=== PATIENT | male | born 1970 | race Caucasian/White ===

== ENCOUNTER 2025-08-21 09:24 | Emergency (ER) | payer OTHER, MEDICARE, MEDICAID, SELFPAY ==
[2025-08-21 09:35] VITALS: BP 153/95; PULSE 66; RESP 16; TEMP 36.1; O2SAT 96; BMI 30.9
--- NOTE | 2025-08-21 09:50 | ED.GENADULT ---
HPI - General Adult General Chief complaint: Dental/Oral Stated complaint: Toothache Time Seen by Provider: 08/21/25 09:28 History of Present Illness HPI narrative: 55-year-old gentleman with history of chronic pain works with the pain management clinic uses 10 mg of hydrocodone up to 4 times a day. Presents with right upper quadrant dental pain in his 1st molar. He can feel a sharp edge. Dentition overall is fairly good. Pain has been increasing over the last 3 days. He has tried to contact his dentist, Deondre Kent. Pain is increasing to the point where he is unable to sleep. He did take 800 mg of ibuprofen prior to arrival this morning. No fevers or facial swelling Related Data Previous Rx's ?Medication ?Instructions ?Recorded clindamycin HCl 300 mg capsule 300 mg PO BID 7 days #21 caps 08/21/25 oxycodone 10 mg tablet 10 mg PO Q6H PRN pain #16 tabs 08/21/25 Allergies Allergy/AdvReac Type Severity Reaction Status Date / Time Penicillins Allergy Anaphylaxis Verified 08/21/25 09:35 codeine AdvReac Hives Verified 08/21/25 09:35 Review of Systems Review of Systems Narrative: Pertinent positive and negative findings as per HPI Exam Initial Vital Signs Initial Vital Signs: Vital Signs Temperature 97.0 F L 08/21/25 09:35 Pulse Rate 66 08/21/25 09:35 Respiratory Rate 16 08/21/25 09:35 Blood Pressure 153/95 H 08/21/25 09:35 Pulse Oximetry 96 08/21/25 09:35 Oxygen Delivery Method Room Air 08/21/25 09:35 General: Alert, appropriate, holding ice to the right side of his face, no swelling or redness Oral exam: Has most of his teeth, periodontal disease, it does look like the posterior buccal cusp was broken off his 1st molar on the right side. No obvious swelling or drainage Respiratory: Able to speak in full sentences, no obvious respiratory distress Skin: No obvious rashes, warm and dry Neurologic: Grossly intact no obvious asymmetries or abnormalities Psych: appropriate insight and affect, cooperative Course Vital Signs Vital signs: Vital Signs - 8 hr 08/21/25 09:35 Temperature 97.0 F L Pulse Rate 66 Respiratory Rate 16 Blood Pressure 153/95 H Pulse Oximetry 96 Oxygen Delivery Method Room Air Medical Decision Making [facility] Narrative Medical decision making narrative: 55-year-old gentleman with 3 days of increasing right 1st molar dental pain. Does hurt when air touches it. He has been using his scheduled hydrocodone and it is no longer effective. We discussed additional narcotics and if it would interfere with his pain contract. He said that it would not as long as he finishes the prescribed medication 1st then restarts the hydrocodone. Will give him a prescription for 10 mg of oxycodone to use every 6 hours as needed for pain, ibuprofen 600 mg every 6 hours as needed. We discussed using some dental paste simply cover of the tooth so that air touching it isn't quite so painful. Prescriptions were electronically transmitted to [facility]. There was no indication for further imaging, advancing infection or reason for hospital admission today questions are answered he is safely discharge Discharge Plan Departure Patient Disposition: Home Clinical Impression: Toothache Instructions: DI for Dental Pain Activity Restrictions/Additional Instructions: Thank you for coming in today With the 1st molar on the right side hurting with a even air touching it I suspect that you did break off back portion of the tooth and likely do have part of the root exposed which is why it hurts so much. Definitive treatment for this is going to be seeing your [facility] dentist. I have given you a prescription for clindamycin, an antibiotic to be taken 3 times a day for the next 7 days this was electronically transmitted to [facility] in [place], they are open until 5:00 p.m. today your 1st dose was given in the emergency department Regarding your pain management contract, you have indicated that additional narcotics will not void that contract. Knowing that, I am going to suggest that you hold your 10 mg of hydrocodone and instead use 10 mg of oxycodone every 6 hours and you can add 600 mg of ibuprofen every 6 hours if needed. If you find that you are getting worse or develop any new symptoms, please feel free to return to the emergency department for further evaluation. Prescriptions: New clindamycin HCl 300 mg capsule 300 mg PO BID 7 Days Qty: 21 0RF oxycodone 10 mg tablet 10 mg PO Q6H PRN (Reason: pain) Qty: 16 0RF Stand Alone Forms: Patient Portal/API
--- OUTSIDE RECORDS SUMMARY | 2025-08-21 10:09 | XMS_ITS | Encounter Summary ---
Author [facility] Address [address] [place] [address] Care Team Providers Care Front Desk Coordinator Name Role Phone Shelton Gillis MD Primary Care Provider [phone] Encounter Details Date Type Department Care Team (Late st Contact Info) Description 08/26/2014 Pre-op/Pre-procedu re Orders [facility] [id number] [place] [phone] Lonnie Velazquez, RT(R) [address] [place] [address] Social History Tobacco Use Types Packs/Day Years Used Date Smoking Tobacco: Never Assessed Sex and Gender Information Value Date Recorded Sex Assigned at Not on file Legal Sex Male 1:43 PM PDT Gender Identity Not on file Sexual Orientation Not on file documented as of this encounter Plan of Treatment Not on file documented as of this encounter Visit Diagnoses Not on filedocumented in this encounter Care Teams Front Desk Coordinator Relationship Specialty Start Date End Date Shelton Gillis MD PCP - General Emergency Medicine 08/05/13 documented as of this encounter
[2025-08-21] MEDS: CLINDAMYCIN 150 MG CAPSULE 300 MG PO (10:20)
== END 2025-08-21 10:23 | disposition home or self-care (01) ==
PROVIDERS: Emergency Provider Emergency Medicine
DX: K08.89 Other specified disorders of teeth and supporting structures (principal)
CPT/HCPCS: 99283

== ENCOUNTER 2025-08-26 11:59 | Emergency (ER) | payer OTHER, MEDICAID, SELFPAY ==
--- OUTSIDE RECORDS SUMMARY | 2025-08-26 12:02 | XMS_ITS | Encounter Summary ---
Author Organization [facility] Address [address] [place] [address] Care Team Providers Care Floor Tech Name Role Phone Shelton Gillis MD Primary Care Provider [phone] Encounter Details Date Type Department Care Team (Late st Contact Info) Description 08/26/2014 Pre-op/Pre-procedu re Orders [facility] [id number] [place] [phone] Lonnie Velazquez, RT(R) [address] [place] [address] Social History Tobacco Use Types Packs/Day Years [...] on filedocumented in this encounter Care Teams Floor Tech Relationship Specialty Start Date End Date Shelton Gillis MD PCP - General Emergency Medicine 08/05/13 documented as of this encounter
[2025-08-26 12:47] VITALS: BP 174/84; PULSE 57; RESP 17; TEMP 36.6; O2SAT 93; BMI 38.0
--- NOTE | 2025-08-26 14:44 | ED.DENTAL ---
HPI - Dental/Oral General Chief complaint: Dental/Oral Stated complaint: Dental Px Time Seen by Provider: 08/26/25 13:37 Source: patient Mode of arrival: Family Vehicle History of Present Illness HPI Narrative: Mr. Duff is a pleasant 55-year-old gentleman with a past medical history of chronic shoulder pain on pain management with regular opioids who presents to the emergency department for continued right-sided dental pain, he is out of his pain medication from his ER visit 4 days ago. Patient developed right upper molar dental pain on Bobbi and came to the ER. At that time he was started on clindamycin in addition to oxycodone as his normal daily hydrocodone was not sufficient for this new acute pain. Therefore he has stopped taking his hydrocodone and was instead taking the oxycodone which was very helpful for his pain in addition to ibuprofen and Tylenol. He is on the wait list to see his dentist for an emergency visit however he does not yet have an appointment and he ran out of his oxycodone. Therefore he is here today for additional pain medication. Denies any new symptoms such as swelling of the mouth, fevers, chills or flu-like symptoms. His normal hydrocodone is not sufficient for this pain. Related Data Previous Rx's ?Medication ?Instructions ?Recorded clindamycin HCl 300 mg capsule 300 mg PO BID 7 days #21 caps 08/21/25 oxycodone 10 mg tablet 10 mg PO Q6H PRN pain #16 tabs 08/21/25 oxycodone 10 mg tablet 10 mg PO Q6H PRN pain 4 days #16 08/26/25 tabs Allergies Allergy/AdvReac Type Severity Reaction Status Date / Time Penicillins Allergy Anaphylaxis Verified 08/26/25 12:46 codeine AdvReac Hives Verified 08/26/25 12:46 Review of Systems Review of Systems ROS Unobtainable: All systems reviewed & are unremarkable except as noted in HPI and below Patient History Social History Smoking Status: Former smoker Smoking Status: Former smoker tobacco type: cigarettes Exam Narrative Exam Narrative: GENERAL: 55 year old patient appears stated age. Well-developed patient, in mild distress 2/2 tooth pain. HEAD: Atraumatic. Normocephalic. EYES: PERRL. Extraocular motions intact. No scleral icterus. No injection or drainage. ENT: oropharynx patent. No submandibular swelling. Patient has tenderness to palpation of the top right 2nd most posterior molar. There is a silver filling in the smaller and there appears to be a crack through the tooth. There is no surrounding erythema or edema, no drainage from the gingiva. NECK: Trachea midline. Cervical ROM intact. CARDIOVASCULAR: Regular rate RESPIRATORY: Nonlabored respirations. Speaking in clear, full sentences. NEURO: AOx3. Clear speech. Moves all 4 extremities appropriately. SKIN: No rash or erythema of visible areas Initial Vital Signs Initial Vital Signs: Vital Signs Temperature 97.8 F 08/26/25 12:47 Pulse Rate 57 L 08/26/25 12:47 Respiratory Rate 17 08/26/25 12:47 Blood Pressure 174/84 H 08/26/25 12:47 Pulse Oximetry 93 08/26/25 12:47 Oxygen Delivery Method Room Air 08/26/25 12:47 Course Orders Ordered: Discontinued Medications Acetaminophen (Acetaminophen 325 Mg Tablet) 975 mg PO NOW ONE Stop: 08/26/25 15:08 Last Admin: 08/26/25 15:25 Dose: 975 mg Documented By: RL Ibuprofen (Ibuprofen 400 Mg Tablet) 400 mg PO NOW ONE Stop: 08/26/25 15:08 Last Admin: 08/26/25 15:27 Dose: 400 mg Documented By: RL Oxycodone HCl (Oxycodone Ir 5 Mg Tablet) 10 mg PO NOW ONE Stop: 08/26/25 15:08 Last Admin: 08/26/25 15:27 Dose: 10 mg Documented By: IVANA Vital Signs Vital signs: Vital Signs - 8 hr 08/26/25 12:47 08/26/25 15:29 Temperature 97.8 F Pulse Rate 57 L 59 L Respiratory Rate 17 18 Blood Pressure 174/84 H 141/81 H Pulse Oximetry 93 95 Oxygen Delivery Method Room Air Room Air MDM - Dental/Oral Medical Records Attestation: I reviewed the patient's medical records. [facility] Narrative Medical decision making narrative: 55-year-old gentleman with a past medical history of chronic shoulder pain on pain management with regular opioids who presents to the emergency department for continued right-sided dental pain, he is out of his pain medication from his ER visit 4 days ago. Differential diagnosis includes but is not limited to fractured tooth, pulpitis, dental justino, etc. on exam patient is nontoxic appearing, vital signs appropriate. He is in significant amount of pain due to right upper molar. He takes hydrocodone for chronic pain however since developing this tooth pain his normal pain medication is not helpful despite adding on ibuprofen and Tylenol. He came to the ER 4 days ago and received a script for oxycodone for the breakthrough pain. This was helping him significantly however he ran out of the script. He is currently on the wait list to be seen at the emergency dentist. He is here for more oxycodone. Discussed with the patient multimodal pain therapy including Orajel, ibuprofen, Tylenol, oxycodone. Discussed with the patient that ER can not continue to refill pain medication and that he should get his PCP involved in case he needs additional refills. Patient agrees to this plan but is hopeful that he will be seen by the dentist within the next few days. Pain medicine given in the ED. discussed ER return precautions and PCP follow up. Patient verbalized understanding of all information and is agreeable with the plan. He is stable for discharge home, he has his girlfriend here to drive him home. Discharge Plan Departure Patient Disposition: Home Clinical Impression: Pain, dental Instructions: DI for Dental Pain Activity Restrictions/Additional Instructions: Dear Mr. Duff, Thank you for coming to the emergency department. I am very sorry that you are dealing with severe tooth pain. You have been prescribed oxycodone for this severe pain since your normal hydrocodone is not enough for this acute pain. Please use iboporfen, tylenol, and Oragel for this pain as well. Please follow up with your dentist as soon as possible. You have been prescribed a short course of narcotic medications. These are potentially dangerous and addictive medications that should be used carefully. While on these medications you cannot drive or operate heavy machinery. Additionally, you cannot sign legal documents or perform any duties such as this. Many people get constipated on narcotic medications so it would be advisable to discuss stool softeners with the pharmacist when you picking machine operator your prescription. Please understand that we cannot provide further refills of narcotics or controlled substances through the ED and your pain management will need to be through your Primary Care Provider Please follow up with your primary care doctor within the next 2-3 days for ER follow-up. (If you do not have a PCP you can call [phone]. ?to schedule an appointment with an [facility] Primary Care Provider) IF YOU DEVELOP ANY NEW OR WORSENING SYMPTOMS, RETURN TO THE ER! Please read the attached instructions, they highlight more specific treatments and interventions for you at home. Thank you for letting me participate in your care, Marie Clarke PA-C Prescriptions: New oxycodone 10 mg tablet 10 mg PO Q6H PRN (Reason: pain) 4 Days Qty: 16 0RF No Action clindamycin HCl 300 mg capsule 300 mg PO BID 7 Days Qty: 21 0RF oxycodone 10 mg tablet 10 mg PO Q6H PRN (Reason: pain) Qty: 16 0RF Stand Alone Forms: Patient Portal/API
[2025-08-26] MEDS: ACETAMINOPHEN 325 MG TABLET 975 MG PO (15:25)
[2025-08-26] MEDS: IBUPROFEN 400 MG TABLET PO (15:27)
[2025-08-26 15:29] VITALS: BP 141/81; PULSE 59; RESP 18; O2SAT 95
--- NOTE | 2025-08-26 15:29 | PC.NURSE ---
Patient evaluated, treated, and discharged by provider prior to nursing assessment. Patient is not narcotic naive, pain meds given at discharge.
== END 2025-08-26 15:30 | disposition home or self-care (01) ==
PROVIDERS: Emergency Provider Physician Assistant
DX: K08.89 Other specified disorders of teeth and supporting structures (principal)
CPT/HCPCS: 99283